=== PATIENT | male | born 1945 | race Caucasian/White ===

== ENCOUNTER 2016-09-01 07:15 | Day surgery (SDC) | payer OTHER ==
[2016-08-29 12:59] VITALS: BMI 27.4
[2016-09-01] VITALS (20 sets, daily range): BP systolic 110–149; BP diastolic 51–80; PULSE 73–100; RESP 16–24; Ht 167.6 cm; Wt 80.0 kg
[~2016-09-01] VITALS: Ht 167.6 cm; Wt 80.0 kg
[~2016-09-01 07:15] MED LIST: ACAR50TA PO; CEFAZOLIN 2 GM/50 ML (PMX) 50 ML IVPB ONE; DOXA2TAB52 PO; GLIP-95 PO; HYDR-3498 PO; LISI20TA11 PO; LOVA20TA PO; METF-388 PO; SITA100T8 PO; SOD CHLORIDE 0.9% 1,000 ML IV ONE
--- NOTE | 2016-09-01 08:35 | RADRPT ---
PROCEDURE: XR Chest. CLINICAL INDICATION: Preoperative TECHNIQUE: Single frontal view of the chest was obtained COMPARISON: None FINDINGS: The heart and mediastinum are within normal limits. The lungs are clear. There is no pleural effusion or pneumothorax. There are degenerative changes of the bilateral AC joints. RPTAT: AA IMPRESSION: No acute disease. .Yaya Hilario MD, MD Date Time Electronically viewed and signed by .Yaya Hilario MD, on 09/01/2016 08:35 .S/
[2016-09-01] MEDS ORDERED: LIDOCAINE 1% (MPF) 30 ML INJ ONE (08:42)
[2016-09-01] MEDS ORDERED: ULT50 PO (08:56)
[2016-09-01] MEDS ORDERED: ASPI81TA3 PO (08:56)
[2016-09-01] MEDS ORDERED: SUCCINYLCHOLINE CHLORIDE 100 MG/5 ML SYG IV ONE (09:17)
[2016-09-01] MEDS ORDERED: PROPOFOL 20 ML ONE (09:17)
[2016-09-01] MEDS ORDERED: CEFAZOLIN 1 GM INJ ONE (09:17)
[2016-09-01] MEDS ORDERED: FENTAnyl 50 MCG/ML VIAL ONE (09:17)
[2016-09-01] MEDS ORDERED: ROCURONIUM 50 MG INJ ONE (09:17)
[2016-09-01] MEDS ORDERED: ONDANSETRON 4 MG INJ ONE (09:17)
[2016-09-01] MEDS: D5W-0.45 NACL + KCL 20 MEQ 1,000 ML IV SCH ×2 (09:25→17:25)
[2016-09-01] MEDS ORDERED: ACETAMINOPHEN 1000MG/100ML IV 100 ML IVPB PRN (09:30)
[2016-09-01] MEDS ORDERED: ONDANSETRON 4 MG INJ IV PRN ×2 (09:30→10:00)
[2016-09-01] MEDS ORDERED: morphine 2 MG INJ IV PRN (09:30)
[2016-09-01] MEDS ORDERED: HYDROmorphONE (0.2 MG/ML) 10ML SYG IV PRN (10:00)
[2016-09-01] MEDS ORDERED: LABETALOL HCL 20MG INJ IV PRN (10:00)
[2016-09-01] MEDS ORDERED: MEPERIDINE 25 MG INJ IV PRN (10:00)
[2016-09-01] MEDS ORDERED: FENTAnyl 50 MCG/ML VIAL IV PRN (10:00)
[2016-09-01] MEDS ORDERED: hydrALAzine 20 MG INJ IV PRN ×2 (10:00→13:00)
[2016-09-01] MEDS: FENTAnyl 50 MCG/ML VIAL IV PRN ×3 (11:25→11:38)
[2016-09-01] MEDS: HYDROmorphONE (0.2 MG/ML) 10ML SYG IV PRN ×4 (11:44→12:03)
--- NOTE | 2016-09-01 12:12 | OPR ---
DATE OF OPERATION: 09/01/2016 PREOPERATIVE DIAGNOSIS: Bilateral gynecomastia, need for bilateral simple mastectomy. POSTOPERATIVE DIAGNOSIS: Bilateral gynecomastia, need for bilateral simple mastectomy. OPERATION PERFORMED: Bilateral simple mastectomy. ANESTHESIA: General. ANESTHESIOLOGIST: Michael Mullen MD SURGEON: Noah Mcdowell MD STITCHER AROUND: Peña Abraham MD INDICATIONS FOR PROCEDURE: The patient is a 71-year-old male who presented with significant bilater al gynecomastia. He was counseled as to the possible benefit of surgery and also told that the cond ition was not life threatening and would be his incision as whether or not to proceed. He strongly requested the surgery. He consented and was scheduled for surgery. DESCRIPTION OF PROCEDURE: The patient was brought to the operating theater, placed under general an esthesia. The anterior thorax was shaved, prepped and draped in usual sterile fashion. Attention w as first directed to the left side. Planned incision extended her from the 9 o'clock position throu gh the 12 o'clock position to the 3 o'clock position in periareolar fashion was demarcated with michael ing pen and then extended both medially and laterally for a distance of approximately 3 cm. The inc ision was carried out with a 15-blade scalpel. Subcutaneous tissue was dissected with cautery. Ski n edges were then elevated with skin clamps and the skin flaps were created first superiorly beyond the portion of where the obvious gynecomastia was, then medially to the sternal border, inferiorly t o the inframammary fold, and then laterally to the border of the pectoralis major muscle. Mastectom y took place from medial to lateral using cautery. Specimen was removed, oriented, and sent for per manent pathologic analysis. The wound was irrigated. Minimal bleeding was controlled with cautery. A #10 Bulgarian Rory-Puente drain was brought through the left mid axillary line, cut to size, laid over the pectoralis major muscle, and secured in place with 2-0 nylon suture in the standard fashio n. The skin was then reapproximated with a deep dermal layer of 4-0 Vicryl sutures followed by liz l skin approximation with 5-0 PDS, and Dermabond was applied. Attention was directed to the right side. A similar incision was demarcated with a marking pen, and then carried out with a 15-blade scalpel. Subcutaneous tissue was dissected with cautery. The ski n edges were then elevated with skin hooks, and again flaps were created first superiorly to a point beyond the obvious breast tissue, then medially to the sternal border, inferiorly to the inframamma ry fold, and laterally to the border of the pectoralis major muscle. Mastectomy then took place fro m medial to lateral using cautery. Specimen was oriented and removed, and sent for permanent pathol ogic analysis. Please note that both on the left and on the right additional subareolar tissue was resected, and both of those specimens were sent separately as well. The wound was then irrigated. Minimal bleeding was controlled with cautery. A #10 Bulgarian Rory-Puente drain was brought through the right mid axillary line, it was cut to size, laid over the pectoralis major muscle, and secured in place with 2-0 nylon suture. The skin was then reapproximated with 4-0 Vicryl sutures in a deep dermal fashion, and final skin approximation took place with 5-0 PDS sutures in subcuticular fashion , and Dermabond was applied. The patient tolerated the procedures well. The total blood loss was 3 0 mL. There were no complications, and the patient was transported in stable condition to the [facility] room. Dictated By: NOAH CHOUDHURY/DEMETRICE Conf#: [id number] DID#: [id number]
[2016-09-01] MEDS ORDERED: DEXTROSE 50% 50 ML SYRINGE IV PRN ×2 (13:30)
[2016-09-01] MEDS ORDERED: GLUCOSE GEL 15 GRAM TUBE BUCCAL PRN (13:30)
[2016-09-01] MEDS ORDERED: GLUCAGON 1 MG INJ IM PRN (13:30)
[2016-09-01] MEDS ORDERED: GLUCOSE GEL 15 GRAM TUBE PO PRN ×2 (13:30)
--- NOTE | 2016-09-01 14:26 | HP ---
DATE OF ADMISSION: 09/01/2016 HISTORY OF PRESENT ILLNESS: The patient is a 71-year-old gentleman with past medical history positi ve for prostate cancer status post surgery 4 years ago, hypertension, diabetes, dyslipidemia, and le ft bundle branch block and left knee degenerative osteoarthritis. The patient was seen in surgical consultation by Dr. Noah cMdowell for bilateral gynecomastia. The patient was brought to the [facility] and underwent bilateral simple mastectomy. The patient has significant postoperative pain, and th e patient will be admitted for further evaluation and management. PAST MEDICAL HISTORY: Per HPI. PAST SURGICAL HISTORY: Status post total left knee replacement by Dr. Huntley in July 2015, status post prostate surgery 4 years ago, status post hernia repairs 7 years ago, status post cataract nupur leah. FAMILY HISTORY: Noncontributory. SOCIAL HISTORY: The patient lives at home. The patient denies any tobacco use, denies alcohol use, denies any illicit drug use. ALLERGIES: NO KNOWN ALLERGIES. MEDICATIONS ON ADMISSION: 1. Acarbose. 2. Aspirin. 3. Cardura. 4. Glipizide. 5. [place]. 6. Lisinopril. 7. Metformin. 8. Tramadol. 9. Lovastatin. 10. Januvia. REVIEW OF SYSTEMS: A 12-point review of systems is negative unless what is mentioned in the HPI. PHYSICAL GENERAL: Well-developed, well-nourished gentleman, currently awake, alert. VITAL SIGNS: Temperature is 98.1, pulse is 88, blood pressure 138/74, respiratory rate 18, oxygen s aturation 97% on 2 L nasal cannula. HEENT: Head is atraumatic, normocephalic. Pupils equal, round, reactive to light and accommodation . Oral mucosa is pink and moist. NECK: Supple, no cervical lymphadenopathy, no thyromegaly. CHEST: Lung status post surgery. Lungs clear bilaterally. CARDIOVASCULAR: Normal S1, S2. No murmurs, clicks, rubs noted. ABDOMEN: Round, soft, nondistended, nontender. Bowel sounds present. EXTREMITIES: No edema, clubbing, cyanosis. Pulses equal bilaterally 2+. SKIN: There is no rash, petechiae noted. NEUROLOGIC: The patient is awake, alert, and oriented x3. No focal deficits noted. Motor strength is 5/5 in all extremities. ASSESSMENT AND PLAN: 1. Bilateral gynecomastia status post bilateral simple mastectomy by Dr. Noah Mcdowell. Will contin ue Dilaudid and Tylenol for pain. Continue Zofran p.r.n. for nausea. 2. Diabetes mellitus type 2. Will continue Accu-Chek before every meal at bedtime with mild slidin g coverage of NovoLog. Will resume patient's diabetes home medication. The patient was able to isai e p.o. Advance diet per surgery. 3. Hypertension. Continue hydralazine p.r.n. for systolic blood pressure above 170. Continue sequ ential compression device for deep venous thrombosis prophylaxis. Further recommendations based on clinical course. Plan of care discussed with Dr. Galvin. Dictated By: KALINA BAH INSIGHTS STRATEGIST for AMANDA GALVIN MD SR/NTS Conf#: [id number] DID#: [id number]
[2016-09-01] MEDS: INSULIN ASPART [NOVOLOG] 3 ML PEN SC SCH ×2 (18:30→20:43)
[2016-09-01] MEDS ORDERED: DOXAZOSIN 2 MG TAB PO SCH (21:00)
[2016-09-02] VITALS: BP 105/55; RESP 18
[2016-09-02 06:33] LABS: BASOPHILS % 0.4 % (0.0-2.0); EOSINOPHILS # 0.1 10^3/ul (0.0-0.5); EOSINOPHILS % 1.8 % (0.0-7.0); HEMATOCRIT 35.3 % (42.0-52.0); HEMOGLOBIN 12.1 g/dl (14.0-18.0); LYMPHOCYTES # 1.6 10^3/ul (0.8-2.9); LYMPHOCYTES % 19.8 % (15.0-51.0); MEAN CORPUSCULAR HEMOGLOBIN 29.3 pg (29.0-33.0); MEAN CORPUSCULAR HGB CONC 34.4 g/dl (32.0-37.0); MONOCYTE # 0.8 10^3/ul (0.3-0.9); NEUTROPHIL # 5.4 10^3/ul (1.6-7.5); PLATELET COUNT 210 10^3/UL (140-440); RED BLOOD COUNT 4.15 10^6/ul (4.70-6.10); RED CELL DISTRIBUTION WIDTH 14.3 % (11.5-14.5)
[2016-09-02 06:46] LABS: CONDITION 1
[2016-09-02 06:47] LABS: POTASSIUM 3.9 mmol/L (3.5-5.1)
[2016-09-02 06:49] LABS: CREATININE 0.82 mg/dl (0.61-1.24)
[2016-09-02 08:39] VITALS: BP 118/60; RESP 16
[2016-09-02] MEDS: metFORMIN 500 MG TAB PO SCH ×2 (09:00→18:00)
[2016-09-02] MEDS ORDERED: LISINOPRIL 20 MG TAB PO SCH (09:00)
[2016-09-02] MEDS ORDERED: ASPIRIN 81 MG TAB PO SCH (09:00)
[2016-09-02] MEDS: ACARBOSE 50 MG TAB PO SCH ×2 (09:01→17:55)
[2016-09-02] MEDS: INSULIN ASPART [NOVOLOG] 3 ML PEN SC SCH ×3 (09:07→17:41)
[2016-09-02] MEDS ORDERED: HYDROCODONE/APAP (5/325) TAB PO PRN (12:00)
[2016-09-02] MEDS ORDERED: HYDR-3498 PO (17:37)
--- NOTE | 2016-09-02 18:18 | PN ---
DATE: 09/02/2016 SUBJECTIVE: Postoperative day #1 for this gentleman who has had bilateral simple mastectomy because of bilateral gynecomastia. The patient does not have any complaints or any concerns. Diet regular as tolerated. Walking around on the floor out of bed. VITAL SIGNS: Recorded as follows: Temperature 98, heart rate 70 and regular, respirations 16, bloo d pressure 118/60, saturation 98% on room air. Her blood sugar today is 163. It should be mentioned that the patient is diabetic and is on metform in at home. Rory-Puente drain has been in for the past 24 hours 125 mL and the other one is 40 mL . The color is serosanguineous. ASSESSMENT AND PLAN: Patient is stable on postop day #1 and he is ready to be discharged home. Fo llow up by Dr. Mcdowell in his office. PLAN: The patient will be discharged today. Followed by Dr. Mcdowell' office on 09/10/2016. The appo intment has been made. The patient was instructed how to drain the Rory-Puente and how to measure them, write them down, record them and have a recording of them every day. So when he goes to the office, potentially the doctors in the office can make a decision when to remove the Rory-Puente d rain. Medical service will also see the patient and clear the patient for discharge. Dictated By: ROSELINE BLANCAS/DEMETRICE Conf#: [id number] DID#: [id number]
--- NOTE | 2016-09-04 01:21 | DS ---
DATE OF ADMISSION: 09/01/2016 DATE OF DISCHARGE: 09/02/2016 FINAL DIAGNOSES: 1. Bilateral gynecomastia, status post bilateral simple mastectomy by Dr. Mcdowell. 2. Diabetes mellitus type 2. 3. Hypertension. BRIEF HISTORY: The patient is a 71-year-old gentleman with past medical history positive for prosta te cancer, status post surgery 4 years ago; hypertension; diabetes; dyslipidemia; left knee degenera tive osteoarthritis, status post total left knee replacement. The patient was seen in surgical cons ultation by Dr. Mcdowell for bilateral gynecomastia, and patient was brought to the hospital and underw ent bilateral simple mastectomy. Postoperatively, the patient experienced some significant pain and was admitted for further management. HOSPITAL COURSE: The patient was given Tylenol and morphine p.r.n. for pain, Zofran p.r.n. for naus ea. The patient had adequate blood sugar control, blood pressure was within normal limits, and the patient's condition improved. The patient's pain was controlled with [place], and the patient was dis charged home. CONDITION ON DISCHARGE: Hemodynamically stable. ACTIVITY: As patient tolerates. DIET: 1800 ADA diabetic, low-fat diet. DISCHARGE MEDICATIONS: The patient is given prescription for [place] p.r.n. for pain. The patient continued on his home medications of: 1. Acarbose. 2. Aspirin. 3. Cardura. 4. Glipizide. 5. Lisinopril. 6. Lovastatin. 7. Metformin. 8. Januvia. 9. Tramadol. FOLLOWUP: The patient is instructed to follow up with Dr. Mcdowell in postoperative appointment in [place]. Dictated By: KALINA BAH BRANCH SPECIALIST for AMANDA GALVIN MD SR/NTS Conf#: [id number] DID#: [id number]
== END 2016-09-02 18:10 | disposition home or self-care (01) ==
LOC: SDS 07:15 → MS1 12:46 → SDS 09-02 18:10
PROVIDERS: ATTEND Surgery Surgical Oncology
DX: N62 Hypertrophy of breast (principal); I10 Essential (primary) hypertension; E11.9 Type 2 diabetes mellitus without complications
CPT/HCPCS: 19300; 71010; 80048; 82962; 85025; 88307; J0330; J0690; J1170; J1815; J2270; J2405; J3010

== ENCOUNTER 2017-01-06 11:58 | Emergency (ER) | payer OTHER ==
[~2017-01-06] VITALS: Ht 167.6 cm; Wt 81.5 kg
[~2017-01-06 11:58] MED LIST changes: +ASPI81TA3 PO; -CEFAZOLIN 2 GM/50 ML (PMX) 50 ML IVPB ONE; -METF-388 PO; +METF1000 PO; -SOD CHLORIDE 0.9% 1,000 ML IV ONE; +TRAM50TA2 PO
[2017-01-06 12:06] VITALS: Ht 167.6 cm; Wt 81.5 kg
[2017-01-06] MEDS ORDERED: LIDOCAINE 1% (MDV) 20 ML INJ INJ STA (13:14)
[2017-01-06] MEDS ORDERED: HYDROCODONE/APAP (5/325) TAB PO ONE (13:30)
[2017-01-06] MEDS ORDERED: DIPHTH/TET/ACEL PERTUSS (ADULT) 0.5 ML VIAL IM* ONE (13:30)
--- NOTE | 2017-01-06 13:56 | RADRPT ---
PROCEDURE: XR right hand. CLINICAL INDICATION: Laceration by glass TECHNIQUE: Three views are available for review. COMPARISON: No prior studies are available for comparison. FINDINGS: There is no evidence of a radiopaque foreign body. The osseous structures are normal in mineralization, architecture and alignment. No fracture or oss eous lesion is identified. There is mild osteoarthrosis. No erosions are identified. The soft tissu es are unremarkable. IMPRESSION: No evidence of a radiopaque foreign body Mild osteoarthrosis RPTAT: HGDB .Thom Galicia MD, MD Date Time Electronically viewed and signed by .Thom Galicia MD, on 01/06/2017 13:55 .B/
[2017-01-06] MEDS ORDERED: ACET1TAB40 PO (14:07)
--- NOTE | 2017-01-06 14:10 | ERD ---
ER Documentation Chief Complaint Date/Time DATE: 01/06/17 TIME: 14:09 Chief Complaint right index finger lac with glass today HPI This 71-year-old male presents with a right index finger laceration after being cut with a piece of broken glass. He has no restricted range of motion weakness in his tetanus is not up-to-date. ROS All systems reviewed and are negative except as per history of present illness. Medications Home Meds Active Scripts Acetaminophen with Codeine (Acetaminophen-Cod #3 Tablet) 1 Each Tablet, 1 TAB PO Q6H Y for PAIN, #12 TAB Prov:JOLLY NIEVES MD 01/06/17 Hydrocodone Bit-Acetaminophen (Hydrocodone Bit-APAP) 5-325MG Tablet, 1 TAB PO Q4H Y for PAIN LEVEL 1-5, #30 TAB Prov:KALINA BAH 09/02/16 Reported Medications Aspirin* (Aspirin* Chew) 81 Mg Tab.chew, 81 MG PO DAILY, TAB.CHEW 09/01/16 Tramadol HCl (Tramadol HCl) 50 Mg Tablet, 50 MG PO BID, #60 TAB 09/01/16 Acarbose* (Precose*) 50 Mg Tablet, 50 MG PO BID, TAB 08/02/15 Sitagliptin* (Januvia*) 100 Mg Tablet, 100 MG PO DAILY, TAB 08/02/15 Metformin Hcl* (Metformin Hcl*) 1,000 Mg Tablet, 1000 MG PO BID 01/06/12 Lisinopril* (Lisinopril*) 20 Mg Tablet, 20 MG PO DAILY 01/06/12 Lovastatin* (Lovastatin*) 20 Mg Tablet, 20 MG PO HS 01/06/12 Glipizide* (Glipizide*) 10 Mg Tablet, 10 MG PO BID 01/06/12 Doxazosin* (CARDURA*) 2 Mg Tablet, 2 MG PO HS 01/06/12 Allergies Allergies: Coded Allergies: No Known Allergies (Verified Allergy, Unknown, 01/01/16) PMhx/Soc History of Surgery: Yes (LT KNEE SX,CATARACT SX, PROSTATE CA) Anesthesia Reaction: No Hx Neurological Disorder: No Hx Respiratory Disorders: No Hx Cardiac Disorders: Yes (LEFT BBB) Hx Psychiatric Problems: No Hx Miscellaneous Medical Probl: Yes (HIGH CHOL) Hx Alcohol Use: No Hx Substance Use: No Hx Tobacco Use: No Smoking Status: Never smoker Physical Exam Vitals Vital Signs Date Time Temp Pulse Resp B/P Pulse Ox O2 Delivery O2 Flow Rate FiO2 01/06/17 12:06 98.2 82 18 143/67 95 Physical Exam Const: [] Alert, [id number] per Head: Atraumatic Eyes: Normal Conjunctiva ENT: Normal External Ears, Nose and Mouth. Neck: Full range of motion..~ No meningismus. Resp: Clear to auscultation bilaterally Cardio: Regular rate and rhythm, no murmurs Abd: Soft, non tender, non distended. Normal bowel sounds Skin: No petechiae or rashes Back: No midline or flank tenderness Ext: No cyanosis, or edema. The right index finger there is approximately 4 cm laceration which is longitudinal with the finger and crosses the DIP joint. There is no appreciable tendon or neurologic deficit. The stone visible foreign body or deformity. Neur: Awake and alert Psych: Normal Mood and Affect Results 24 hrs Current Medications Medications (Trade) Dose Ordered Sig/Mana Route PRN Reason Start Time Stop Time Status Last Admin Dose Admin Diphtheria/ Tetanus/Acell Pertussis (Adacel) 0.5 ml ONCE ONCE IM* 01/06/17 13:30 01/06/17 13:31 DC 01/06/17 13:26 Acetaminophen/ Hydrocodone Bitart ([place] (5/325)) 1 tab ONCE ONCE PO 01/06/17 13:30 01/06/17 13:31 DC 01/06/17 13:25 Lidocaine (Xylocaine 1% (Mdv) 20 ml) 20 ml ONCE STAT INJ 01/06/17 13:14 01/06/17 13:17 DC 01/06/17 13:25 Procedures/MDM X-ray right hand 3V interpreted by me: Scaphoid: [Normal] Bones: [No fracture] Joints: [No dislocation] Foreign body: [None]. Impression have a normal right hand x-ray Procedure note-the right index finger laceration was irrigated copiously with normal saline. 3 cc of lidocaine was used to perform a digital block. Anesthesia was obtained. 7 4-0 nylon sutures were used to approximate the wound and the patient tolerated procedure well and the wound was dressed. Patient presents with right index finger laceration without evidence of fracture , foreign body, tendon or neurologic deficit or bacterial infection. Discharged home the prescription of Tylenol with instructions for wound check in 2 days and suture removal in 10-12 days. The patient was stable with no new complaints during the ER course. Clinically, there is no current evidence to suggest meningitis, sepsis, acute abdomen, pneumonia, acute coronary syndrome, pulmonary embolism, or any other emergent condition appearing to require further evaluation or hospitalization. The patient should certainly return for any new or worsening symptoms per the aftercare instructions. They should otherwise follow-up with her primary care doctor for reevaluation this week. Patient is placed in a right index middle splint to prevent contracture. Patient was neurovascular intact after splint. Departure Diagnosis: Primary Impression: Laceration Condition: Stable Patient Instructions: Laceration, Hand Additional Instructions: cheque 2 goel para cheque para infeccion. cheque 10-12 goel para saca los puntos / grapas. JOLLY NIEVES MD January 06, 2017 14:10
== END 2017-01-06 14:38 | disposition home or self-care (01) ==
LOC: FTE 11:58
DX: S61.210A Laceration without foreign body of right index finger without damage to nail, initial encounter (principal); W25.XXXA Contact with sharp glass, initial encounter; Y92.9 Unspecified place or not applicable; Z85.46 Personal history of malignant neoplasm of prostate; Z79.82 Long term (current) use of aspirin; Z23 Encounter for immunization
CPT/HCPCS: 90471; 90715

== ENCOUNTER 2018-06-27 12:39 | Observation (INO) | END 2018-06-28 15:29 | disposition home or self-care (01) ==

== ENCOUNTER 2019-03-21 11:14 | Emergency (ER) | payer OTHER ==
[~2019-03-21] VITALS: Ht 162.6 cm; Wt 74.0 kg
[~2019-03-21 11:14] MED LIST changes: -ASPI81TA3 PO; +ASPI81TA52 PO; +ATOR40TA68 PO; +DOXA2TAB PO; -DOXA2TAB52 PO; +GABA300C16 PO; -GLIP-95 PO; +GLIP10TA14 PO; -HYDR-3498 PO; +LISI1TAB8 PO; -LISI20TA11 PO; -LOVA20TA PO; -METF1000 PO; +METF100010 PO; +SITA100T11 PO; -SITA100T8 PO; -TRAM50TA2 PO
[2019-03-21 11:16] VITALS: BP 143/67; PULSE 87; RESP 18; Ht 162.6 cm; Wt 74.0 kg
[2019-03-21] MEDS ORDERED: KETOROLAC 60 MG INJ IM STA (12:23)
[2019-03-21] MEDS ORDERED: NAPR-985 PO (12:24)
[2019-03-21] MEDS ORDERED: HYDR-4011 PO (12:24)
[2019-03-21] MEDS ORDERED: CYCL10TA7 PO (12:24)
[2019-03-21] MEDS ORDERED: DIAZEPAM 5 MG TAB PO ONE (12:30)
--- NOTE | 2019-03-21 13:13 | ERD ---
ER Documentation Chief Complaint Chief Complaint RT SIDED NECK PAIN THAT RADIATES UP THE HEAD X 2 WEEKS HPI 73-year-old male presenting with pain to the right side of his neck. Patient states is been going on for 3 weeks and is worse with movement. He denies any numbness or tingling down his arms and has not taken any medications for his symptoms. He denies any tearing pain or headaches. Denies vomiting. Denies medical problems. NKDA. Surgical history his knee surgery, prostate cancer surgery and laser eye surgery. Social history denies. ROS All systems reviewed and are negative except as per history of present illness. Medications Home Meds Active Scripts Cyclobenzaprine Hcl* (Cyclobenzaprine Hcl*) 10 Mg Tablet, 10 MG PO TID, #15 TAB Prov:MARGARITO PANG PA-C 03/21/19 Naproxen* (Naprosyn*) 500 Mg Tablet, 500 MG PO BID PRN for PAIN AND/OR INFLAMMATION, #30 TAB Prov:MARGARITO PANG PA-C 03/21/19 Hydrocodone/Acetaminophen ([place] 5-325 Tablet) 1 Each Tablet, 1 TAB PO Q6H PRN for PAIN, #7 TAB Prov:MARGARITO PANG PA-C 03/21/19 Atorvastatin* (Atorvastatin*) 40 Mg Tablet, 40 MG PO QHS, #60 TAB Prov:GASPER MARLEY 06/28/18 Reported Medications Lisinopril/Hydrochlorothiazide (Lisinopril-Hctz 20-25 mg Tab) 1 Each Tablet, 1 EACH PO DAILY, TAB 06/27/18 Gabapentin* (Gabapentin*) 300 Mg Capsule, 300 MG PO QHS, #60 CAP 06/27/18 Sitagliptin* (Januvia*) 100 Mg Tablet, 100 MG PO DAILY, #30 TAB 06/27/18 Metformin Hcl* (Metformin Hcl*) 1,000 Mg Tablet, 1000 MG PO WITH BREAKFAST DINNE, #60 TAB 06/27/18 Glipizide* (Glipizide*) 10 Mg Tablet, 10 MG PO BID, TAB 06/27/18 Doxazosin Mesylate* (Doxazosin Mesylate*) 2 Mg Tablet, 2 MG PO HS, TAB 06/27/18 Aspirin (Low Dose Aspirin) 81 Mg Tablet.dr, 81 MG PO DAILY, #30 TAB 06/27/18 Acarbose* (Precose*) 50 Mg Tablet, 50 MG PO BID WITH MEALS, TAB 06/27/18 Allergies Allergies: Coded Allergies: No Known Allergies (Verified Allergy, Unknown, 06/27/18) PMhx/Soc History of Surgery: Yes (LT KNEE SX,CATARACT SX, prostate sx) Anesthesia Reaction: No Hx Neurological Disorder: No Hx Respiratory Disorders: No Hx Cardiac Disorders: Yes (LEFT BBB) Hx Psychiatric Problems: No Hx Miscellaneous Medical Probl: Yes (See EMR for details. ,prostate ca) Hx Alcohol Use: No Hx Substance Use: No Hx Tobacco Use: No FmHx Family History: No diabetes, No coronary disease, No other Physical Exam Vitals Vital Signs Date Temp Pulse Resp B/P (MAP) Pulse Ox O2 O2 Flow FiO2 Time Delivery Rate 03/21/19 97.1 87 18 143/67 98 11:16 (92) Physical Exam GENERAL: The patient is well-appearing, well-nourished, in no acute distress HEENT: Atraumatic. Conjunctivae are pink. Pupils equal, round, and reactive to light. There is no scleral icterus. Tympanic membranes clear bilaterally. Oropharynx clear. NECK: Tender to palpation over the right lateral neck with no obvious deformities or masses. No swelling. No erythema or fluctuance. No bruits. CHEST: Clear to auscultation bilaterally. There are no rales, wheezes or rhonchi. HEART: Regular rate and rhythm. No murmurs, clicks, rubs or gallops. SKIN: There is no apparent rash or petechiae. The skin is warm and dry. Results 24 hrs Current Medications Medications Dose Sig/Mana Start Time Status Last (Trade) Ordered Route PRN Stop Time Admin Dose Reason Admin Ketorolac 60 mg ONCE STAT 03/21/19 DC 03/21/19 Tromethamine IM 12:23 12:36 (Toradol) 03/21/19 12:24 Diazepam 5 mg ONCE ONCE 03/21/19 DC 03/21/19 (Valium) PO 12:30 12:36 03/21/19 12:31 Procedures/MDM ER course: Toradol and Valium given ED. MDM: 73-year-old male presenting with right neck pain. I believe patient's symptoms are likely associated with musculoskeletal strain to call us. I have considered carotid dissection however low suspicion given this is his been consistent for 3 weeks and persistent. Pain is worse with movement. I have low suspicion for acute fracture dislocation as patient has had no traumatic inj uries and there is no midline cervical neck tenderness. Is discharged with strict ER precautions and told to follow-up with primary care. All questions answered at discharge Departure Diagnosis: Primary Impression: Torticollis Condition: Stable Patient Instructions: Torticollis ([place]) Referrals: [facility] YOU HAVE RECEIVED A MEDICAL SCREENING EXAM AND THE RESULTS INDICATE THAT YOU DO NOT HAVE A CONDITION THAT REQUIRES URGENT TREATMENT IN THE EMERGENCY DEPARTMENT. FURTHER EVALUATION AND TREATMENT OF YOUR CONDITION CAN WAIT UNTIL YOU ARE SEEN IN YOUR DOCTORS OFFICE WITHIN THE NEXT 1-2 DAYS. IT IS YOUR RESPONSIBILITY TO M CHINEDU AN APPOINTMENT FOR FOLOW-UP CARE. IF YOU HAVE A PRIMARY DOCTOR --you should call your primary doctor and schedule an appointment IF YOU DO NOT HAVE A PRIMARY DOCTOR YOU CAN CALL OUR PHYSICIAN REFERRAL HOTLINE AT IF YOU CAN NOT AFFORD TO SEE A PHYSICIAN YOU CAN CHOSE FROM THE FOLLOWING [facility] [address] [facility] [address] [facility] [facility] [address] [facility] [address] [facility] [address] [facility]. [facility]. [address] Additional Instructions: FOLLOW UP WITH YOUR PRIMARY CARE PHYSICIAN TOMORROW.Return to this facility if you are not improving as expected. MARGARITO PANG PA-C Mar 21, 2019 13:13 JOLLY NIEVES MD Mar 21, 2019 20:38
== END 2019-03-21 13:29 | disposition home or self-care (01) ==
LOC: FTE 11:14
DX: M43.6 Torticollis (principal); Z79.82 Long term (current) use of aspirin; Z79.84 Long term (current) use of oral hypoglycemic drugs; Z85.46 Personal history of malignant neoplasm of prostate
CPT/HCPCS: 96372; J1885